=== PATIENT | male | born 1970 | race Caucasian/White ===

== ENCOUNTER 2018-09-03 21:01 | Inpatient (IN) | payer MEDICAID, OTHER ==
[~2018-09-03] VITALS: Ht 193 cm; Wt 95.5 kg
[2018-09-03] MEDS ORDERED: ONDANSETRON 4 MG INJ IV STA (22:30)
[2018-09-03] MEDS ORDERED: SOD CHLORIDE 0.9% 500 ML IV STA (22:30)
[2018-09-03] MEDS ORDERED: morphine 4 MG/ML VIAL IV STA (22:30)
[2018-09-03] MEDS ORDERED: HYDROmorphONE 1 MG/ML SYG IV STA (23:34)
[2018-09-04] VITALS (16 sets, daily range): BP systolic 152–225; BP diastolic 88–133; PULSE 91–133; RESP 18–27; Ht 193 cm; Wt 95.5 kg
[2018-09-04] MEDS ORDERED: ONDANSETRON 4 MG INJ IV STA ×2 (00:17→01:22)
[2018-09-04] MEDS ORDERED: IOHEXOL 300MG/ML 150 ML BTL ONE (00:55)
[2018-09-04] MEDS ORDERED: SOD CHLORIDE 0.9% 100 ML ONE (00:55)
[2018-09-04] MEDS ORDERED: SOD CHLORIDE 0.9% 1,000 ML IV STA (01:22)
[2018-09-04] MEDS ORDERED: HYDROmorphONE 1 MG/ML SYG IV STA (01:22)
[2018-09-04] MEDS ORDERED: NACL 0.9% 3 ML SYG IV SCH (02:00)
[2018-09-04] MEDS ORDERED: BISACODYL (EC) 5 MG TAB PO PRN (02:00)
[2018-09-04] MEDS ORDERED: DOCUSATE SODIUM 100 MG CAP PO PRN (02:00)
[2018-09-04] MEDS: HYDROmorphONE 0.5 MG/0.5 ML SYG IV PRN ×4 (02:10→21:28)
--- NOTE | 2018-09-04 02:51 | ERD ---
ER Documentation Chief Complaint Chief Complaint AP X'S 2 DAYS, C/O CP IN TRIAGE HPI Is a very pleasant 47 female complains of diffuse abdominal pain for the past 3 days. Pain is mild to moderate intensity no exacerbating relieving factors. Associated nausea but no vomiting. Denies fevers or chills. Denies any sick contacts. Denies recent travel. Denies any other current issues. ROS All systems reviewed and are negative except as per history of present illness. Medications Home Meds No Active Prescriptions or Reported Meds Allergies Allergies: Coded Allergies: No Known Allergy (Unverified , 09/03/18) PMhx/Soc History of Surgery: No Anesthesia Reaction: No Hx Neurological Disorder: No Hx Respiratory Disorders: No Hx Cardiac Disorders: No Hx Psychiatric Problems: No Hx Miscellaneous Medical Probl: No Hx Alcohol Use: Yes Hx Substance Use: No Hx Tobacco Use: No Smoking Status: Never smoker Physical Exam Vitals Vital Signs Date Temp Pulse Resp B/P (MAP) Pulse Ox O2 O2 Flow FiO2 Time Delivery Rate 09/04/18 102 20 162/133 95 Room Air 00:00 (143) 09/03/18 96 16 153/109 100 Room Air 23:00 (124) 09/03/18 97.1 85 18 152/94 97 21:04 (113) Physical Exam Const: No acute distress Head: Atraumatic Eyes: Normal Conjunctiva ENT: Normal External Ears, Nose and Mouth. Neck: Full range of motion. No meningismus. Resp: Clear to auscultation bilaterally Cardio: Regular rate and rhythm, no murmurs Abd: Soft, non tender, non distended. Normal bowel sounds Skin: No petechiae or rashes Back: No midline or flank tenderness Ext: No cyanosis, or edema Neur: Awake and alert Psych: Normal Mood and Affect Result Diagram: 09/03/18224209/03/182242 Results 24 hrs Laboratory Tests Test 09/03/18 22:43 White Blood Count 8.4 10^3/ul Red Blood Count 4.46 10^6/ul Hemoglobin 14.5 g/dl Hematocrit 41.5 % Mean Corpuscular Volume 93.0 fl Mean Corpuscular Hemoglobin 32.5 pg Mean Corpuscular Hemoglobin Concent 34.9 g/dl Red Cell Distribution Width 13.8 % Platelet Count 181 10^3/UL Mean Platelet Volume 9.5 fl Immature Granulocytes % 0.400 % Neutrophils % 84.6 % Lymphocytes % 7.3 % Monocytes % 7.2 % Eosinophils % 0.0 % Basophils % 0.5 % Nucleated Red Blood Cells % 0.0 /100WBC Immature Granulocytes # 0.030 10^3/ul Neutrophils # 7.1 10^3/ul Lymphocytes # 0.6 10^3/ul Monocytes # 0.6 10^3/ul Eosinophils # 0.0 10^3/ul Basophils # 0.0 10^3/ul Nucleated Red Blood Cells # 0.0 10^3/ul Sodium Level 140 mmol/L Potassium Level 3.4 mmol/L Chloride Level 101 mmol/L Carbon Dioxide Level 26 mmol/L Anion Gap 13 Blood Urea Nitrogen 9 mg/dl Creatinine 0.94 mg/dl Est Glomerular Filtrat Rate mL/min > 60 mL/min Glucose Level 125 mg/dl Calcium Level 9.0 mg/dl Total Bilirubin 0.7 mg/dl Direct Bilirubin 0.00 mg/dl Indirect Bilirubin 0.7 mg/dl Aspartate Amino Transf (AST/SGOT) 161 IU/L Alanine Aminotransferase (ALT/SGPT) 82 IU/L Alkaline Phosphatase 89 IU/L Troponin I 0.113 ng/ml Total Protein 7.9 g/dl Albumin 4.2 g/dl Globulin 3.70 g/dl Albumin/Globulin Ratio 1.13 Lipase 7557 U/L Ethyl Alcohol Level 196.0 mg/dl Current Medications Medications Dose Sig/Hector Start Time Status Last (Trade) Ordered Route PRN Stop Time Admin Dose Reason Admin Sodium 500 ml @ Q1H STAT 09/03/18 DC 09/03/18 Chloride 500 mls/hr IV 22:30 22:39 09/03/18 23:29 Morphine 4 mg ONCE STAT 09/03/18 DC 09/03/18 Sulfate IV 22:30 22:39 (morphine) 09/03/18 22:31 Ondansetron 4 mg ONCE STAT 09/03/18 DC 09/03/18 HCl (Zofran IV 22:30 22:39 Inj) 09/03/18 22:31 1 mg ONCE STAT 09/03/18 DC 09/03/18 Hydromorphone IV 23:34 23:41 HCl 09/03/18 23:35 (Dilaudid) Ondansetron 4 mg ONCE STAT 09/04/18 DC 09/04/18 HCl (Zofran IV 00:17 00:21 Inj) 09/04/18 00:18 Sodium 100 ml @ ud STK-MED 09/04/18 DC 09/04/18 Chloride ONCE .ROUTE 00:55 01:17 09/04/18 00:56 Iohexol 150 ml STK-MED 09/04/18 DC 09/04/18 (Omnipaque ONCE .ROUTE 00:55 01:17 300mg/ ml) 09/04/18 00:56 Sodium 1,000 ml @ Q1H STAT 09/04/18 DC 09/04/18 Chloride 1,000 mls/hr IV 01:22 01:32 09/04/18 02:21 1 mg ONCE STAT 09/04/18 DC 09/04/18 Hydromorphone IV 01:22 01:30 HCl 09/04/18 01:23 (Dilaudid) Ondansetron 4 mg ONCE STAT 09/04/18 DC 09/04/18 HCl (Zofran IV 01:22 01:20 Inj) 09/04/18 01:23 Procedures/MDM CBC: [no e/o of systemic infection or severe anemia] CMP: [no e/o severe acidosis, alkalosis, renal failure, diabetic ketoa cidosis, liver disease] Lipase: Severe elevation of lipase PT/INR: [normal coagulation] Urine: [no e/o acute infection or hematuria] Medical decision m[age]-year-old male who has evidence of acute pancreatitis. Patient has been hydrated and given pain medications. He is been kept n.p.o. Patient will be admitted to medical surgical floor to Dr. Leslie. Chest X-ray 1V Interpreted by me: Soft Tissue: No acute abnormalities Bones: No acute abnormalities Mediastinum/Cardiac Silhouette/Lungs: [No acute abnormalities] Departure Diagnosis: Primary Impression: Acute pancreatitis Pancreatitis type: unspecified pancreatitis type Acute pancreatitis complication: unspecified Qualified Codes: K85.90 - Acute pancreatitis without necrosis or infection, unspecified Condition: Serious DEANGELO QUEVEDO September 04, 2018 02:51
[2018-09-04] MEDS: SOD CHLORIDE 0.9% 1,000 ML IV SCH ×4 (03:17→21:53)
[2018-09-04] MEDS ORDERED: ONDANSETRON 4 MG INJ IV ONE (03:57)
[2018-09-04] MEDS: ONDANSETRON 4 MG INJ IV PRN ×2 (06:07→13:38)
--- NOTE | 2018-09-04 08:32 | HP ---
Date/Time of Note Date/Time of Note DATE: 09/04/18 TIME: 08:18 Assessment/Plan VTE Prophylaxis Risk score (from Ns)>0 risk: 2 SCD applied (from Ns): Yes Pharmacological prophylaxis: NA/contraindicated Pharm contraindication: low risk/ambulating Lines/Catheters IV [facility]from [facility] Saline Lock Assessment/Plan Hospital Course This is a 47-year-old male being admitted to the [facility] floor for: #1 acute pancreatitis: CT scan consistent with acute pancreatitis. Secondary likely to heavy alcohol use. Will check ethanol level. Will check triglyceride level as well. We will keep patient n.p.o. except meds, aggressive IV fluid hydration. Pain control with Dilaudid. #2 EtOH abuse: We will check blood alcohol level. Banana bag, Librium taper, PRN Ativan, multivitamin, folic acid, thiamine #3 transaminitis: Secondary likely to heavy alcohol use. Check right upper quadrant ultrasound, hepatitis panel. #4 DVT GI prophylaxis: SCDs, no GI prophylaxis indicated Further treatment strategy will be implemented as per the clinical course. Result Diagram: 09/04/18 0709/04/18 07 Results 24hrs Laboratory Tests Test 09/03/18 22:43 09/04/18 07:05 White Blood Count 8.4 9.6 Red Blood Count 4.46 L 4.35 L Hemoglobin 14.5 14.1 Hematocrit 41.5 L 40.7 L Mean Corpuscular Volume 93.0 93.6 Mean Corpuscular Hemoglobin 32.5 32.4 Mean Corpuscular Hemoglobin Concent 34.9 34.6 Red Cell Distribution Width 13.8 14.0 Platelet Count 181 179 Mean Platelet Volume 9.5 9.9 Immature Granulocytes % 0.400 0.300 Neutrophils % 84.6 H 87.3 H Lymphocytes % 7.3 L 4.7 L Monocytes % 7.2 7.4 Eosinophils % 0.0 0.0 Basophils % 0.5 0.3 Nucleated Red Blood Cells % 0.0 0.0 Immature Granulocytes # 0.030 0.030 Neutrophils # 7.1 8.4 H Lymphocytes # 0.6 L 0.5 L Monocytes # 0.6 0.7 Eosinophils # 0.0 0.0 Basophils # 0.0 0.0 Nucleated Red Blood Cells # 0.0 0.0 Sodium Level 140 141 Potassium Level 3.4 L 3.9 Chloride Level 101 106 Carbon Dioxide Level 26 22 Anion Gap 13 13 Blood Urea Nitrogen 9 8 Creatinine 0.94 0.76 Est Glomerular Filtrat Rate mL/min > 60 > 60 Glucose Level 125 132 Calcium Level 9.0 8.5 Total Bilirubin 0.7 0.8 Direct Bilirubin 0.00 0.00 Indirect Bilirubin 0.7 0.8 Aspartate Amino Transf (AST/SGOT) 161 H 117 H Alanine Aminotransferase (ALT/SGPT) 82 H 76 H Alkaline Phosphatase 89 95 Troponin I 0.113 Total Protein 7.9 8.0 Albumin 4.2 4.0 Globulin 3.70 H 4.00 H Albumin/Globulin Ratio 1.13 1.00 Lipase 7557 H Ethyl Alcohol Level 196.0 H Hemoglobin A1c 5.5 Magnesium Level 1.4 L Triglycerides Level 90 Cholesterol Level 296 H LDL Cholesterol, Calculated 210 HDL Cholesterol 68 H Cholesterol/HDL Ratio 4.3 Thyroid Stimulating Hormone (TSH) Pending HPI/ROS Admit Date/Time Admit Date/Time September 04, 2018 at 01:52 Hx of Present Illness Chief complaint: Abdominal pain This is a 47-year-old male with a history of heavy alcohol use who presents to the emergency department complaining of gastric pain. Patient reports that his pain started yesterday associated with nausea and vomiting. He denies having similar symptoms before. Patient reports that he is a heavy alcohol drinker on a daily basis. He denies any chest pain nausea vomiting or diarrhea. Allergies: NKDA Medications: See CHASTITY KEY Const: As per HPI Eyes : No pain discharge or redness or change in visual acuity ENT: No pain, sore throat, congestion, congestion, dysphagia or discharge Respiratory: No shortness of breath, cough, sputum, wheezing, or pleuritic pain Cardiovascular: No chest pain, palpitation, PND, or edema GI : As per HPI Genitourinary: No dysuria, hematuria, flank pain , discharge or CVA tenderness Musculoskeletal: No joint pain, back pain, neck pain, restricted range of motion in neck or joints Skin: No rash, bruising or hives Neuro: No headache, dizziness, syncope, seizure, focal weakness Endocrine: No polyuria, polydipsia, temperature intolerance Psych: No hallucination, depression, anxiety or suicidal ideation PMH/Family/Social Past Medical History Medical History: no pertinent history Medications Current Medications Sodium Chloride 1,000 ml @ 150 mls/hr Q6H40M IV Last administered on 09/04/18at 03:17; Admin Dose 150 MLS/HR; Start 09/04/18 at 01:53 IV Flush (NS 3 ml) 3 ml PER PROTOCOL IV ; Start 09/04/18 at 02:00 Ondansetron HCl (Zofran Inj) 4 mg Q6H PRN IV NAUSEA/VOMITING Last administered on 09/04/18at 06:07; Admin Dose 4 MG; Start 09/04/18 at 02:00 Acetaminophen (Tylenol Tab) 650 mg Q6H PRN PO .PAIN 1-3 OR TEMP; Start 09/04/18 at 02:00 Hydromorphone HCl (Dilaudid) 1 mg Q4H PRN IV .SEVERE PAIN 7-10 Last administered on 09/04/18at 06:08; Admin Dose 1 MG; Start 09/04/18 at 02:00 Docusate Sodium (Colace) 100 mg Q12H PRN PO .CONSTIPATION; Start 09/04/18 at 02:00 Bisacodyl (Dulcolax) 5 mg DAILY PRN PO .CONSTIPATION; Start 09/04/18 at 02:00 Coded Allergies: No Known Allergy (Unverified , 09/03/18) Past Surgical History Left bicep surgery Family History Significant Family History: no pertinent family hx Social History Alcohol Use: heavy Smoking Status: Never smoker Drug Use: none Exam/Review of Systems Vital Signs Vitals Vital Signs Date Temp Pulse Resp B/P (MAP) Pulse Ox O2 O2 Flow FiO2 Time Delivery Rate 09/04/18 98.4 95 18 152/88 95 Nasal 2.0 03:00 (109) Cannula Intake and Output 09/03/18 09/03/18 09/04/18 1515:00 23:00 07:00 IntakeIntake Total 500 ml BalanceBalance 500 ml Exam Exam General: Patient is currently sitting in bed in mild distress from abdominal pain HEENT: Atraumatic, normocephalic. The pupils are equal, round and reactive. Ext raocular motor are intact Neck: Supple with full range of motion. No rigidity or meningismus Chest: Nontender Lungs: Clear to auscultation bilaterally no crackles rales or wheezing Heart: Normal S1-S2, Regular rhythm and rate. No murmur, S3, or S4 Abdomen: Soft, epigastric tenderness to palpation, normal bowel sounds, no costovertebral angle tenderness bilaterally Extremities: Normal to inspection, no edema no cyanosis Neurologic: Normal mental status, speech normal, cranial nerves II through XII are intact, motor and sensory are intact, Psych: Non-tremulous, calm Additional Comments PROCEDURE: CT Abdomen and pelvis with contrast. CLINICAL INDICATION: Abdominal pain. TECHNIQUE: CT scan of the abdomen and pelvis with contrast was performed on a multi-detector high-resolution CT scanner. The patient was scanned following the uncomplicated administration of 100 cc of Omnipaque 300 intravenous contrast. Coronal and sagittal reformatted images were obtained from the axial source images. Images were reviewed on a high-resolution PACS workstation. DICOM images are available. One or more of the following dose reduction techniques were used: - Automated exposure control. - Adjustment of the mA and/or kV according to patient size. - Use of iterative reconstruction technique. Exam CTD/vol = 12.65 mGy. Total exam DLP = 883.68 mGy-cm. COMPARISON: None. FINDINGS: Evaluation of the lung bases demonstrates add bibasilar atelectasis. There is trace right pleural effusion. Abdomen: The liver is normal in size and diffusely low in attenuation consistent with fatty infiltration. There is no focal mass or dilatation of the biliary tree. The gallbladder is not distended. The pancreas is diffusely edematous with moderate surrounding stranding and free fluid extending to bilateral anterior pararenal spaces. The spleen and bilateral adrenal glands are within normal limits. Bilateral kidneys are normal in size with symmetric enhancement. There is no focal mass, hydronephrosis or hydroureter. There is no retroperitoneal adenopathy. The abdominal aorta is of normal caliber. There is diverticulosis of the descending and sigmoid colon without evidence of diverticulitis. There is mild fatty thickening of the right and transverse colon. There is no bowel obstruction or free air. The appendix is not visualized. Pelvis: The bladder is unremarkable. There is mild pelvic free fluid. The prostate and seminal vesicles are within normal limits. There is no significant pelvic adenopathy. Evaluation of the osseous structures demonstrates no suspicious lytic or blastic lesion. There are degenerative subchondral cysts within the left femoral head. IMPRESSION: Pancreatitis with moderate surrounding stranding and free fluid. Fatty infiltration of the liver. Mild bibasilar atelectasis and trace right pleural effusion. Descending and sigmoid diverticulosis without evidence of diverticulitis. Mild fatty thickening of the right and transverse colon suggestive of a chronic colitis. Mild pelvic free fluid. .Nish Cortez MD, MD Date Time Electronically viewed and signed by .Nish Cortez MD, MD on 09/04/2018 02:23 .T/ CC: DEANGELO QUEVEDO [id number] PROCEDURE: XR Chest. TECHNIQUE: Single frontal radiograph. CLINICAL INDICATION: Abdominal Pain COMPARISON: None. FINDINGS: Low lung volumes with elevation of the right hemidiaphragm. Mild right basilar atelectasis. No evidence of focal consolidation, pneumothorax, or pleural effusion. Cardiomediastinal silhouette is within normal limits. Visualized osseous thorax is unremarkable. Overlying soft tissues are equally unremarkable. No evidence of subdiaphragmatic free air. IMPRESSION: No evidence of acute cardiopulmonary process, allowing for low lung volumes. No evidence of free intraperitoneal air. RPTAT: EE Physician Emir Date Time Electronically viewed and signed by Physician Emir on 09/04/2018 00:01 BP/ CC: DEANGELO QUEVEDO [id number] SUZIE MAR September 04, 2018 08:28
[2018-09-04] MEDS ORDERED: MULTIVITAMINS 10 ML, THIAMINE 100 MG, FOLIC ACID 1 MG in SOD CHLORIDE 0.9% 1,000 ML IVPB SCH (09:00)
[2018-09-04] MEDS: CHLORDIAZEPOXIDE 25 MG CAP PO SCH ×3 (10:38→21:28)
--- NOTE | 2018-09-04 12:49 | PN ---
Date/Time of Note Date/Time of Note DATE: 09/04/18 TIME: 12:48 Assessment/Plan VTE Prophylaxis Risk score (from Nsg)>0 risk: 2 SCD applied (from Nsg): Yes Pharmacological prophylaxis: heparin Lines/Catheters IV Catheter Type (from Nrsg): Saline Lock Assessment/Plan Hospital Course 47 yo male with etoh use d/o presents with alcohol induced pancreatitis - Symptomatic care with IV fluids, pain control - Clear liquid diet - Counseled on etoh cessation Result Diagram: 09/04/1870409/04/18704 Results 24hrs Laboratory Tests Test 09/03/18 22:43 09/04/18 07:05 09/04/18 09:55 White Blood Count 8.4 9.6 Red Blood Count 4.46 L 4.35 L Hemoglobin 14.5 14.1 Hematocrit 41.5 L 40.7 L Mean Corpuscular Volume 93.0 93.6 Mean Corpuscular Hemoglobin 32.5 32.4 Mean Corpuscular Hemoglobin Concent 34.9 34.6 Red Cell Distribution Width 13.8 14.0 Platelet Count 181 179 Mean Platelet Volume 9.5 9.9 Immature Granulocytes % 0.400 0.300 Neutrophils % 84.6 H 87.3 H Lymphocytes % 7.3 L 4.7 L Monocytes % 7.2 7.4 Eosinophils % 0.0 0.0 Basophils % 0.5 0.3 Nucleated Red Blood Cells % 0.0 0.0 Immature Granulocytes # 0.030 0.030 Neutrophils # 7.1 8.4 H Lymphocytes # 0.6 L 0.5 L Monocytes # 0.6 0.7 Eosinophils # 0.0 0.0 Basophils # 0.0 0.0 Nucleated Red Blood Cells # 0.0 0.0 Sodium Level 140 141 Potassium Level 3.4 L 3.9 Chloride Level 101 106 Carbon Dioxide Level 26 22 Anion Gap 13 13 Blood Urea Nitrogen 9 8 Creatinine 0.94 0.76 Est Glomerular Filtrat Rate mL/min > 60 > 60 Glucose Level 125 132 Calcium Level 9.0 8.5 Total Bilirubin 0.7 0.8 Direct Bilirubin 0.00 0.00 Indirect Bilirubin 0.7 0.8 Aspartate Amino Transf (AST/SGOT) 161 H 117 H Alanine Aminotransferase (ALT/SGPT) 82 H 76 H Alkaline Phosphatase 89 95 Troponin I 0.113 Total Protein 7.9 8.0 Albumin 4.2 4.0 Globulin 3.70 H 4.00 H Albumin/Globulin Ratio 1.13 1.00 Lipase 7557 H 5234 H Ethyl Alcohol Level 196.0 H Hemoglobin A1c 5.5 Magnesium Level 1.4 L Triglycerides Level 90 Cholesterol Level 296 H LDL Cholesterol, Calculated 210 HDL Cholesterol 68 H Cholesterol/HDL Ratio 4.3 Thyroid Stimulating Hormone (TSH) 0.377 L Hepatitis A Antibody Total POSITIVE H Hepatitis B Surface Antigen NEGATIVE Hepatitis B Surface Antibody NEGATIVE Hepatitis B Core Total Antibody Pending Hepatitis C Antibody NEGATIVE Subjective 24 Hr Interval Summary Free Text/Dictation Pain relieved by dilaudid Occasional nasuea but wants to try clear liquids Admits to heavy drinking. No symptoms of withdrawal currently Exam/Review of Systems Exam Vitals Vital Signs Date Temp Pulse Resp B/P (MAP) Pulse Ox O2 O2 Flow FiO2 Time Delivery Rate 09/04/18 98.8 91 20 180/116 96 08:00 (137) 09/04/18 Nasal 2.0 03:00 Cannula Intake and Output 09/03/18 09/03/18 09/04/18 1515:00 23:00 07:00 IntakeIntake Total 500 ml BalanceBalance 500 ml Results Results 24hrs Laboratory Tests Test 09/03/18 22:43 09/04/18 07:05 09/04/18 09:55 White Blood Count 8.4 9.6 Red Blood Count 4.46 L 4.35 L Hemoglobin 14.5 14.1 Hematocrit 41.5 L 40.7 L Mean Corpuscular Volume 93.0 93.6 Mean Corpuscular Hemoglobin 32.5 32.4 Mean Corpuscular Hemoglobin Concent 34.9 34.6 Red Cell Distribution Width 13.8 14.0 Platelet Count 181 179 Mean Platelet Volume 9.5 9.9 Immature Granulocytes % 0.400 0.300 Neutrophils % 84.6 H 87.3 H Lymphocytes % 7.3 L 4.7 L Monocytes % 7.2 7.4 Eosinophils % 0.0 0.0 Basophils % 0.5 0.3 Nucleated Red Blood Cells % 0.0 0.0 Immature Granulocytes # 0.030 0.030 Neutrophils # 7.1 8.4 H Lymphocytes # 0.6 L 0.5 L Monocytes # 0.6 0.7 Eosinophils # 0.0 0.0 Basophils # 0.0 0.0 Nucleated Red Blood Cells # 0.0 0.0 Sodium Level 140 141 Potassium Level 3.4 L 3.9 Chloride Level 101 106 Carbon Dioxide Level 26 22 Anion Gap 13 13 Blood Urea Nitrogen 9 8 Creatinine 0.94 0.76 Est Glomerular Filtrat Rate mL/min > 60 > 60 Glucose Level 125 132 Calcium Level 9.0 8.5 Total Bilirubin 0.7 0.8 Direct Bilirubin 0.00 0.00 Indirect Bilirubin 0.7 0.8 Aspartate Amino Transf (AST/SGOT) 161 H 117 H Alanine Aminotransferase (ALT/SGPT) 82 H 76 H Alkaline Phosphatase 89 95 Troponin I 0.113 Total Protein 7.9 8.0 Albumin 4.2 4.0 Globulin 3.70 H 4.00 H Albumin/Globulin Ratio 1.13 1.00 Lipase 7557 H 5234 H Ethyl Alcohol Level 196.0 H Hemoglobin A1c 5.5 Magnesium Level 1.4 L Triglycerides Level 90 Cholesterol Level 296 H LDL Cholesterol, Calculated 210 HDL Cholesterol 68 H Cholesterol/HDL Ratio 4.3 Thyroid Stimulating Hormone (TSH) 0.377 L Hepatitis A Antibody Total POSITIVE H Hepatitis B Surface Antigen NEGATIVE Hepatitis B Surface Antibody NEGATIVE Hepatitis B Core Total Antibody Pending Hepatitis C Antibody NEGATIVE Medications Medication Current Medications Sodium Chloride 1,000 ml @ 150 mls/hr Q6H40M IV Last administered on 09/04/18at 03:17; Admin Dose 150 MLS/HR; Start 09/04/18 at 01:53 IV Flush (NS 3 ml) 3 ml PER PROTOCOL IV ; Start 09/04/18 at 02:00 Ondansetron HCl (Zofran Inj) 4 mg Q6H PRN IV NAUSEA/VOMITING Last administered on 09/04/18at 06:07; Admin Dose 4 MG; Start 09/04/18 at 02:00 Acetaminophen (Tylenol Tab) 650 mg Q6H PRN PO .PAIN 1-3 OR TEMP; Start 09/04/18 at 02:00 Hydromorphone HCl (Dilaudid) 1 mg Q4H PRN IV .SEVERE PAIN 7-10 Last administered on 09/04/18at 10:40; Admin Dose 1 MG; Start 09/04/18 at 02:00 Docusate Sodium (Colace) 100 mg Q12H PRN PO .CONSTIPATION; Start 09/04/18 at 02:00 Bisacodyl (Dulcolax) 5 mg DAILY PRN PO .CONSTIPATION; Start 09/04/18 at 02:00 Multivitamins 10 ml/Thiamine HCl 100 mg/Folic Acid 1 mg/Sodium Chloride 1,011.2 ml @ 125 mls/ hr DAILY@09 IVPB Last administered on 09/04/18at 10:37; Admin Dose 125 MLS/HR; Start 09/04/18 at 09:00; Stop 09/04/18 at 17:06 Lorazepam (Ativan) 1 mg Q2H PRN IV CONTROL WITHDRAWAL SYMPTOMS; Start 09/04/18 at 08:30 Chlordiazepoxide (Librium) 50 mg TID PO Last administered on 09/04/18at 10:38; Admin Dose 50 MG; Start 09/04/18 at 09:00; Stop 09/05/18 at 08:59 Chlordiazepoxide (Librium) 25 mg QID PO ; Start 09/05/18 at 09:00; Stop 09/06/18 at 08:59 Chlordiazepoxide (Librium) 25 mg TID PO ; Start 09/06/18 at 09:00; Stop 09/07/18 at 08:59 GINA OROZCO MD September 04, 2018 12:49
--- NOTE | 2018-09-04 14:01 | EN ---
Date/Time of Note Date/Time of Note DATE: 09/04/18 TIME: 13:59 Event Note Medicine Medicine Event Note [employer] for seizure Patient had witness seizure, total body shaking which resolved spontatneously. When I arrived patient not convulsing at all. Hyperventilating. 100% O2 sat. BP quite elevated. Somewhat responsive to name but not to commands. I assume this is an alcohol withdrawal seizure given the clinical history. We will move him to ICU. Check labs. Continue librium for withdrawal. GINA OROZCO MD September 04, 2018 14:01
[2018-09-04] MEDS: AMLODIPINE 5 MG TAB PO SCH (16:01)
[2018-09-04] MEDS ORDERED: hydrALAzine 20 MG INJ IV PRN (17:30)
[2018-09-04] MEDS: LORAZEPAM 2 MG INJ IV PRN (22:31)
[2018-09-05] VITALS (20 sets, daily range): BP systolic 157–186; BP diastolic 76–125; PULSE 114–158; RESP 17–28
[2018-09-05] MEDS ORDERED: hydrALAzine 20 MG INJ ONE (00:10)
[2018-09-05] MEDS: hydrALAzine 20 MG INJ IV PRN ×2 (00:11→21:47)
[2018-09-05] MEDS: SOD CHLORIDE 0.9% 1,000 ML IV SCH ×4 (03:00→22:39)
[2018-09-05] MEDS ORDERED: LABETALOL HCL 20MG INJ IV ONE (04:00)
[2018-09-05] MEDS: LORAZEPAM 2 MG INJ IV PRN ×3 (04:47→23:59)
[2018-09-05] MEDS ORDERED: POTASSIUM CHLORIDE (SR) 20 MEQ TAB PO STA (08:01)
[2018-09-05] MEDS: AMLODIPINE 5 MG TAB PO SCH ×2 (08:18→20:23)
[2018-09-05] MEDS ORDERED: CHLORDIAZEPOXIDE 25 MG CAP PO SCH (09:00)
--- NOTE | 2018-09-05 12:45 | PN ---
Date/Time of Note Date/Time of Note DATE: 09/05/18 TIME: 12:44 Assessment/Plan VTE Prophylaxis Risk score (from Nsg)>0 risk: 2 SCD applied (from Nsg): Yes Pharmacological prophylaxis: heparin Lines/Catheters IV Catheter Type (from Nrsg): Peripheral IV Urinary Cath still in place: No Assessment/Plan Hospital Course EXAM: Comfortable appearing A bit somnulent/sedated Breathign comfortably RRR CTAB Soft nt nd No edema 47 yo male with etoh use d/o presents with alcohol induced pancreatitis, then suffered alcohol withdrawal seizure Alcohol withdrawal with seizure: - Librium taper, a bit oversedated now Pancreatitis - Symptomatic care with IV fluids, pain control - Advance diet Alcohol use d/o: - Counseled on etoh cessation Result Diagram: 09/05/18 0510 09/05/18 0510 Results 24hrs Laboratory Tests Test 09/04/18 13:30 09/04/18 13:55 09/04/18 16:25 09/05/18 05:09 Urine Color [place] Urine Clarity SLIGHTLY CLOUDY A Urine pH 5.0 Urine Specific 1.038 H [place] Urine Ketones 1+ H Urine Nitrite NEGATIVE Urine Bilirubin NEGATIVE Urine 2+ H Urobilinogen Urine Leukocyte NEGATIVE Esterase Urine Microscopic 4 RBC Urine Microscopic 4 WBC Urine Bacteria FEW A Urine Mucus FEW A Urine Hemoglobin 2+ H Urine Glucose 1+ H Urine Total 3+ H Protein Urine Opiates Positive Screen Urine Negative Barbiturates Urine Negative Amphetamines Screen Urine Negative Benzodiazepines Screen Urine Cocaine Negative Screen Urine Negative Cannabinoids Bedside Glucose 142 Sodium Level 140 Potassium Level 3.6 Chloride Level 102 Carbon Dioxide 27 Level Anion Gap 11 Blood Urea 11 Nitrogen Creatinine 0.96 Est Glomerular > 60 Filtrat Rate mL/min Glucose Level 147 Calcium Level 8.9 Lipase 3111 H Test 09/05/18 05:10 White Blood Count 9.9 Red Blood Count 4.14 L Hemoglobin 13.5 L Hematocrit 39.4 L Mean Corpuscular 95.2 Volume Mean Corpuscular 32.6 Hemoglobin Mean Corpuscular 34.3 Hemoglobin Concen t Red Cell 14.5 Distribution Width Platelet Count 154 Mean Platelet 10.2 Volume Immature 0.500 H Granulocytes % Neutrophils % 81.0 H Lymphocytes % 7.0 L Monocytes % 10.6 Eosinophils % 0.6 Basophils % 0.3 Nucleated Red 0.0 Blood Cells % Immature 0.050 H Granulocytes # Neutrophils # 8.0 H Lymphocytes # 0.7 L Monocytes # 1.1 H Eosinophils # 0.1 Basophils # 0.0 Nucleated Red 0.0 Blood Cells # Sodium Level 138 Potassium Level 3.1 L Chloride Level 99 Carbon Dioxide 29 Level Anion Gap 10 Blood Urea 11 Nitrogen Creatinine 0.94 Est Glomerular > 60 Filtrat Rate mL/min Glucose Level 92 # Calcium Level 8.9 Total Bilirubin 0.9 Direct Bilirubin 0.00 Indirect 0.9 Bilirubin Aspartate Amino 86 H Transf (AST/SGOT) Alanine 57 Aminotransferase (ALT/SGPT) Alkaline 79 Phosphatase Total Protein 7.3 Albumin 3.8 Globulin 3.50 H Albumin/Globulin 1.08 Ratio Subjective 24 Hr Interval Summary Free Text/Dictation No more seizures A bit oversedated today No withdrawal symptoms Wants to eat regular food No abdominal pain Exam/Review of Systems Exam Vitals Vital Signs Date Temp Pulse Resp B/P (MAP) Pulse Ox O2 O2 Flow FiO2 Time Delivery Rate 09/05/18 98.6 129 22 158/76 92 Room Air 11:20 (103) 09/04/18 2.0 21:30 Intake and Output 09/04/18 09/04/18 09/05/18 1515:00 23:00 07:00 IntakeIntake Total 1115 ml 426.2 ml 1800 ml OutputOutput Total 1500 ml 125 ml 500 ml BalanceBalance -385 ml 301.2 ml 1300 ml Results Results 24hrs Laboratory Tests Test 09/04/18 13:30 09/04/18 13:55 09/04/18 16:25 09/05/18 05:09 Urine Color [place] Urine Clarity SLIGHTLY CLOUDY A Urine pH 5.0 Urine Specific 1.038 H [place] Urine Ketones 1+ H Urine Nitrite NEGATIVE Urine Bilirubin NEGATIVE Urine 2+ H Urobilinogen Urine Leukocyte NEGATIVE Esterase Urine Microscopic 4 RBC Urine Microscopic 4 WBC Urine Bacteria FEW A Urine Mucus FEW A Urine Hemoglobin 2+ H Urine Glucose 1+ H Urine Total 3+ H Protein Urine Opiates Positive Screen Urine Negative Barbiturates Urine Negative Amphetamines Screen Urine Negative Benzodiazepines Screen Urine Cocaine Negative Screen Urine Negative Cannabinoids Bedside Glucose 142 Sodium Level 140 Potassium Level 3.6 Chloride Level 102 Carbon Dioxide 27 Level Anion Gap 11 Blood Urea 11 Nitrogen Creatinine 0.96 Est Glomerular > 60 Filtrat Rate mL/min Glucose Level 147 Calcium Level 8.9 Lipase 3111 H Test 09/05/18 05:10 White Blood Count 9.9 Red Blood Count 4.14 L Hemoglobin 13.5 L Hematocrit 39.4 L Mean Corpuscular 95.2 Volume Mean Corpuscular 32.6 Hemoglobin Mean Corpuscular 34.3 Hemoglobin Concen t Red Cell 14.5 Distribution Width Platelet Count 154 Mean Platelet 10.2 Volume Immature 0.500 H Granulocytes % Neutrophils % 81.0 H Lymphocytes % 7.0 L Monocytes % 10.6 Eosinophils % 0.6 Basophils % 0.3 Nucleated Red 0.0 Blood Cells % Immature 0.050 H Granulocytes # Neutrophils # 8.0 H Lymphocytes # 0.7 L Monocytes # 1.1 H Eosinophils # 0.1 Basophils # 0.0 Nucleated Red 0.0 Blood Cells # Sodium Level 138 Potassium Level 3.1 L Chloride Level 99 Carbon Dioxide 29 Level Anion Gap 10 Blood Urea 11 Nitrogen Creatinine 0.94 Est Glomerular > 60 Filtrat Rate mL/min Glucose Level 92 # Calcium Level 8.9 Total Bilirubin 0.9 Direct Bilirubin 0.00 Indirect 0.9 Bilirubin Aspartate Amino 86 H Transf (AST/SGOT) Alanine 57 Aminotransferase (ALT/SGPT) Alkaline 79 Phosphatase Total Protein 7.3 Albumin 3.8 Globulin 3.50 H Albumin/Globulin 1.08 Ratio Medications Medication Current Medications Sodium Chloride 1,000 ml @ 150 mls/hr Q6H40M IV Last administered on 09/05/18at 10:00; Admin Dose 150 MLS/HR; Start 09/04/18 at 01:53 IV Flush (NS 3 ml) 3 ml PER PROTOCOL IV ; Start 09/04/18 at 02:00 Ondansetron HCl (Zofran Inj) 4 mg Q6H PRN IV NAUSEA/VOMITING Last administered on 09/04/18at 13:38; Admin Dose 4 MG; Start 09/04/18 at 02:00 Acetaminophen (Tylenol Tab) 650 mg Q6H PRN PO .PAIN 1-3 OR TEMP; Start 09/04/18 at 02:00 Hydromorphone HCl (Dilaudid) 1 mg Q4H PRN IV .SEVERE PAIN 7-10 Last adminis tered on 09/04/18at 21:28; Admin Dose 1 MG; Start 09/04/18 at 02:00 Docusate Sodium (Colace) 100 mg Q12H PRN PO .CONSTIPATION; Start 09/04/18 at 02:00 Bisacodyl (Dulcolax) 5 mg DAILY PRN PO .CONSTIPATION; Start 09/04/18 at 02:00 Lorazepam (Ativan) 1 mg Q2H PRN IV withdrawl symptoms/seizures Last a dministered on 09/05/18at 04:47; Admin Dose 1 MG; Start 09/04/18 at 08:30 Hydralazine HCl (Apresoline) 10 mg Q4H PRN IV ELEVATED BLOOD PRESSURE Last administered on 09/05/18at 00:11; Admin Dose 10 MG; Start 09/05/18 at 00:00 Chlordiazepoxide (Librium) 25 mg Q12 PO ; Start 09/05/18 at 21:00 Amlodipine Besylate (Norvasc) 5 mg BID PO ; Start 09/05/18 at 21:00 GINA OROZCO MD September 05, 2018 12:45
--- NOTE | 2018-09-05 14:32 | RADRPT ---
Vent Rate: 91 bpm RR Interval: 0 msec [place] Interval: 140 msec QRS Duration: 80 msec QT Interval: 454 msec QTC Interval: 558 msec P-R-T [place]: 56 - 5 - 39 degrees Normal sinus rhythm Septal infarct , age undetermined Prolonged QT Abnormal ECG Electronically Signed By: [facility]
--- NOTE | 2018-09-05 14:32 | RADRPT ---
Vent Rate: 93 bpm RR Interval: 0 msec [place] Interval: 138 msec QRS Duration: 80 msec QT Interval: 448 msec QTC Interval: 557 msec P-R-T [place]: 58 - 4 - 43 degrees Sinus rhythm with occasional premature ventricular complexes and fusion complexes Septal infarct , age undetermined Prolonged QT Abnormal ECG Electronically Signed By: [facility]
[2018-09-05] MEDS: CHLORDIAZEPOXIDE 25 MG CAP PO SCH (20:23)
[2018-09-05] MEDS: ACETAMINOPHEN 325 MG TAB PO PRN (20:26)
[2018-09-06] VITALS (13 sets, daily range): BP systolic 158–176; BP diastolic 107–121; PULSE 110–165; RESP 20–21
[2018-09-06] MEDS ORDERED: LABETALOL HCL 20MG INJ IV ONE (01:00)
[2018-09-06] MEDS: ENALAPRIL 2.5 MG TAB PO PRN (01:01)
[2018-09-06] MEDS ORDERED: METOPROLOL 5 MG INJ IV ONE (05:00)
[2018-09-06] MEDS: SOD CHLORIDE 0.9% 1,000 ML IV SCH ×2 (05:12→11:32)
[2018-09-06] MEDS: ACETAMINOPHEN 325 MG TAB PO PRN ×2 (05:13→17:24)
[2018-09-06] MEDS: CHLORDIAZEPOXIDE 25 MG CAP PO SCH (08:18)
[2018-09-06] MEDS: AMLODIPINE 5 MG TAB PO SCH ×2 (08:18→21:33)
[2018-09-06] MEDS ORDERED: CHLORDIAZEPOXIDE 25 MG CAP PO SCH (09:00)
[2018-09-06] MEDS ORDERED: POTASSIUM CHLORIDE (SR) 20 MEQ TAB PO STA (10:10)
--- NOTE | 2018-09-06 13:40 | PN ---
Date/Time of Note Date/Time of Note DATE: 09/06/18 TIME: 13:39 Assessment/Plan VTE Prophylaxis Risk score (from Nsg)>0 risk: 2 SCD applied (from Nsg): Yes Pharmacological prophylaxis: heparin Lines/Catheters IV Catheter Type (from Nrsg): Peripheral IV Urinary Cath still in place: No Assessment/Plan Hospital Course EXAM: Comfortable appearing A bit somnulent/sedated Breathign comfortably RRR CTAB Soft nt nd No edema 47 yo male with etoh use d/o presents with alcohol induced pancreatitis, then suffered alcohol withdrawal seizure Alcohol withdrawal with seizure: - Librium taper, remains a bit oversedated now Pancreatitis - Symptomatic care with IV fluids, pain control - Advance diet Alcohol use d/o: - Counseled on etoh cessation Result Diagram: 09/06/1852009/06/18520 Results 24hrs Laboratory Tests Test 09/06/18 05:21 White Blood Count 8.4 Red Blood Count 3.95 L Hemoglobin 12.9 L Hematocrit 37.8 L Mean Corpuscular Volume 95.7 Mean Corpuscular Hemoglobin 32.7 Mean Corpuscular Hemoglobin Concent 34.1 Red Cell Distribution Width 14.2 Platelet Count 162 Mean Platelet Volume 10.4 Immature Granulocytes % 0.400 Neutrophils % 73.5 Lymphocytes % 12.1 L Monocytes % 11.3 H Eosinophils % 2.3 Basophils % 0.4 Nucleated Red Blood Cells % 0.0 Immature Granulocytes # 0.030 Neutrophils # 6.2 Lymphocytes # 1.0 Monocytes # 1.0 H Eosinophils # 0.2 Basophils # 0.0 Nucleated Red Blood Cells # 0.0 Sodium Level 137 Potassium Level 3.0 L Chloride Level 102 Carbon Dioxide Level 29 Anion Gap 6 Blood Urea Nitrogen 7 Creatinine 0.81 Est Glomerular Filtrat Rate mL/min > 60 Glucose Level 108 Calcium Level 8.5 Total Bilirubin 0.8 Direct Bilirubin 0.00 Indirect Bilirubin 0.8 Aspartate Amino Transf (AST/SGOT) 74 H Alanine Aminotransferase (ALT/SGPT) 52 Alkaline Phosphatase 75 Total Protein 6.7 Albumin 3.4 Globulin 3.30 H Albumin/Globulin Ratio 1.03 Lipase 2372 H Subjective 24 Hr Interval Summary Free Text/Dictation Resting comfortably Remains quite sedated Subjective hx not possible: pt non-verbal Exam/Review of Systems Exam Vitals Vital Signs Date Temp Pulse Resp B/P (MAP) Pulse Ox O2 O2 Flow FiO2 Time Delivery Rate 09/06/18 98.3 110 20 176/115 93 11:13 (135) 09/06/18 Nasal 2.0 07:42 Cannula Intake and Output 09/05/18 09/05/18 09/06/18 1515:00 23:00 07:00 IntakeIntake Total 500 ml 1960 ml 1700 ml BalanceBalance 500 ml 1960 ml 1700 ml Results Results 24hrs Laboratory Tests Test 09/06/18 05:21 White Blood Count 8.4 Red Blood Count 3.95 L Hemoglobin 12.9 L Hematocrit 37.8 L Mean Corpuscular Volume 95.7 Mean Corpuscular Hemoglobin 32.7 Mean Corpuscular Hemoglobin Concent 34.1 Red Cell Distribution Width 14.2 Platelet Count 162 Mean Platelet Volume 10.4 Immature Granulocytes % 0.400 Neutrophils % 73.5 Lymphocytes % 12.1 L Monocytes % 11.3 H Eosinophils % 2.3 Basophils % 0.4 Nucleated Red Blood Cells % 0.0 Immature Granulocytes # 0.030 Neutrophils # 6.2 Lymphocytes # 1.0 Monocytes # 1.0 H Eosinophils # 0.2 Basophils # 0.0 Nucleated Red Blood Cells # 0.0 Sodium Level 137 Potassium Level 3.0 L Chloride Level 102 Carbon Dioxide Level 29 Anion Gap 6 Blood Urea Nitrogen 7 Creatinine 0.81 Est Glomerular Filtrat Rate mL/min > 60 Glucose Level 108 Calcium Level 8.5 Total Bilirubin 0.8 Direct Bilirubin 0.00 Indirect Bilirubin 0.8 Aspartate Amino Transf (AST/SGOT) 74 H Alanine Aminotransferase (ALT/SGPT) 52 Alkaline Phosphatase 75 Total Protein 6.7 Albumin 3.4 Globulin 3.30 H Albumin/Globulin Ratio 1.03 Lipase 2372 H Medications Medication Current Medications Sodium Chloride 1,000 ml @ 150 mls/hr Q6H40M IV Last administered on 09/06/18at 11:32; Admin Dose 150 MLS/HR; Start 09/04/18 at 01:53 IV Flush (NS 3 ml) 3 ml PER PROTOCOL IV ; Start 09/04/18 at 02:00 Ondansetron HCl (Zofran Inj) 4 mg Q6H PRN IV NAUSEA/VOMITING Last administered on 09/04/18at 13:38; Admin Dose 4 MG; Start 09/04/18 at 02:00 Acetaminophen (Tylenol Tab) 650 mg Q6H PRN PO .PAIN 1-3 OR TEMP Last admin istered on 09/06/18 05:13; Admin Dose 650 MG; Start 09/04/18 at 02:00 Docusate Sodium (Colace) 100 mg Q12H PRN PO .CONSTIPATION; Start 09/04/18 at 02:00 Bisacodyl (Dulcolax) 5 mg DAILY PRN PO .CONSTIPATION; Start 09/04/18 at 02:00 Lorazepam (Ativan) 1 mg Q2H PRN IV withdrawl symptoms/seizures Last administered on 09/05/18at 23:59; Admin Dose 1 MG; Start 09/04/18 at 08:30 Hydralazine HCl (Apresoline) 10 mg Q4H PRN IV ELEVATED BLOOD PRESSURE Last administered on 09/05/18at 21:47; Admin Dose 10 MG; Start 09/05/18 at 00:00 Amlodipine Besylate (Norvasc) 5 mg BID PO Last administered on 09/06/18 08:18; Admin Dose 5 MG; Start 09/05/18 at 21:00 Enalapril Maleate (Vasotec) 1.25 mg Q6H PRN PO elevated BP Last administered on 09/06/18at 01:01; Admin Dose 1.25 MG; Start 09/06/18 at 00:00 GINA OROZCO MD September 06, 2018 13:39
[2018-09-07] VITALS (11 sets, daily range): BP systolic 162–180; BP diastolic 110–124; PULSE 97–128; RESP 17–20
[2018-09-07] MEDS: hydrALAzine 20 MG INJ IV PRN (00:13)
[2018-09-07] MEDS: ENALAPRIL 2.5 MG TAB PO PRN (08:14)
[2018-09-07] MEDS: AMLODIPINE 5 MG TAB PO SCH ×2 (08:16→20:58)
--- NOTE | 2018-09-07 12:38 | PN ---
Date/Time of Note Date/Time of Note DATE: 09/07/18 TIME: 12:35 Assessment/Plan VTE Prophylaxis Risk score (from Nsg)>0 risk: 1 SCD applied (from Ns): Yes Pharmacological prophylaxis: heparin Lines/Catheters IV Catheter Type (from Nrs): [place] Urinary Cath still in place: No Assessment/Plan Hospital Course EXAM: Comfortable appearing A bit somnulent/sedated Breathign comfortably RRR CTAB Soft nt nd No edema 47 yo male with etoh use d/o presents with alcohol induced pancreatitis, then suffered alcohol withdrawal seizure Alcohol withdrawal with seizure: - Now stable, no signs of withdrawal. He is in fact somewhat oversedated still so will hold all benzos and allow him to equilibrate Hypertension: - I have added Coreg today to amlodipine Pancreatitis - Resolving nicely. Will hold further IV fluids Alcohol use d/o: - Counseled on etoh cessation Discharge planning: He can be discharged home in coming days when alert and able to ambulate. Will likely need antihypertensives prescribed at discharge Result Diagram: 09/07/18 0458 09/07/18 0458 Results 24hrs Laboratory Tests Test 09/07/18 04:58 White Blood Count 7.9 Red Blood Count 4.19 L Hemoglobin 13.9 L Hematocrit 39.4 L Mean Corpuscular Volume 94.0 Mean Corpuscular Hemoglobin 33.2 H Mean Corpuscular Hemoglobin Concent 35.3 Red Cell Distribution Width 13.6 Platelet Count 199 # Mean Platelet Volume 9.8 Immature Granulocytes % 0.600 H Neutrophils % 76.0 Lymphocytes % 10.4 L Monocytes % 11.1 H Eosinophils % 1.5 Basophils % 0.4 Nucleated Red Blood Cells % 0.0 Immature Granulocytes # 0.050 H Neutrophils # 6.0 Lymphocytes # 0.8 Monocytes # 0.9 Eosinophils # 0.1 Basophils # 0.0 Nucleated Red Blood Cells # 0.0 Sodium Level 138 Potassium Level 3.2 L Chloride Level 99 Carbon Dioxide Level 28 Anion Gap 11 Blood Urea Nitrogen 5 L Creatinine 0.67 Est Glomerular Filtrat Rate mL/min > 60 Glucose Level 115 Calcium Level 9.0 Total Bilirubin 0.8 Direct Bilirubin 0.00 Indirect Bilirubin 0.8 Aspartate Amino Transf (AST/SGOT) 67 H Alanine Aminotransferase (ALT/SGPT) 49 Alkaline Phosphatase 95 Total Protein 7.7 # Albumin 3.8 Globulin 3.90 H Albumin/Globulin Ratio 0.97 Lipase 1710 H Subjective 24 Hr Interval Summary Free Text/Dictation Remains tachy, quite hypertensive Somnolence is improving Taking some PO Very unsteady on his feet Exam/Review of Systems Exam Vitals Vital Signs Date Temp Pulse Resp B/P (MAP) Pulse Ox O2 O2 Flow FiO2 Time Delivery Rate 09/07/18 98.3 122 20 179/119 96 09:04 (139) 09/06/18 Nasal 2.0 20:00 Cannula Intake and Output 09/06/18 09/06/18 09/07/18 1515:00 23:00 07:00 IntakeIntake Total 1200 ml 500 ml OutputOutput Total 600 ml 1200 ml BalanceBalance 600 ml -700 ml Results Results 24hrs Laboratory Tests Test 09/07/18 04:58 White Blood Count 7.9 Red Blood Count 4.19 L Hemoglobin 13.9 L Hematocrit 39.4 L Mean Corpuscular Volume 94.0 Mean Corpuscular Hemoglobin 33.2 H Mean Corpuscular Hemoglobin Concent 35.3 Red Cell Distribution Width 13.6 Platelet Count 199 # Mean Platelet Volume 9.8 Immature Granulocytes % 0.600 H Neutrophils % 76.0 Lymphocytes % 10.4 L Monocytes % 11.1 H Eosinophils % 1.5 Basophils % 0.4 Nucleated Red Blood Cells % 0.0 Immature Granulocytes # 0.050 H Neutrophils # 6.0 Lymphocytes # 0.8 Monocytes # 0.9 Eosinophils # 0.1 Basophils # 0.0 Nucleated Red Blood Cells # 0.0 Sodium Level 138 Potassium Level 3.2 L Chloride Level 99 Carbon Dioxide Level 28 Anion Gap 11 Blood Urea Nitrogen 5 L Creatinine 0.67 Est Glomerular Filtrat Rate mL/min > 60 Glucose Level 115 Calcium Level 9.0 Total Bilirubin 0.8 Direct Bilirubin 0.00 Indirect Bilirubin 0.8 Aspartate Amino Transf (AST/SGOT) 67 H Alanine Aminotransferase (ALT/SGPT) 49 Alkaline Phosphatase 95 Total Protein 7.7 # Albumin 3.8 Globulin 3.90 H Albumin/Globulin Ratio 0.97 Lipase 1710 H Medications Medication Current Medications IV Flush (NS 3 ml) 3 ml PER PROTOCOL IV ; Start 09/04/18 at 02:00 Ondansetron HCl (Zofran Inj) 4 mg Q6H PRN IV NAUSEA/VOMITING Last administered on 09/04/18at 13:38; Admin Dose 4 MG; Start 09/04/18 at 02:00 Acetaminophen (Tylenol Tab) 650 mg Q6H PRN PO .PAIN 1-3 OR TEMP Last administered on 09/06/18 17:24; Admin Dose 650 MG; Start 09/04/18 at 02:00 Docusate Sodium (Colace) 100 mg Q12H PRN PO .CONSTIPATION; Start 09/04/18 at 02:00 Bisacodyl (Dulcolax) 5 mg DAILY PRN PO .CONSTIPATION; Start 09/04/18 at 02:00 Hydralazine HCl (Apresoline) 10 mg Q4H PRN IV ELEVATED BLOOD PRESSURE Last administered on 09/07/18 00:13; Admin Dose 10 MG; Start 09/05/18 at 00:00 Amlodipine Besylate (Norvasc) 5 mg BID PO Last administered on 09/07/18 08:16; Admin Dose 5 MG; Start 09/05/18 at 21:00 Enalapril Maleate (Vasotec) 1.25 mg Q6H PRN PO elevated BP Last administered on 09/07/18 08:14; Admin Dose 1.25 MG; Start 09/06/18 at 00:00 Carvedilol (Coreg) 6.25 mg BID PO Last administered on 09/07/18 12:09; Admin Dose 6.25 MG; Start 09/07/18 at 11:30 GINA OROZCO MD September 07, 2018 12:37
[2018-09-08] VITALS (7 sets, daily range): BP systolic 135–150; BP diastolic 96–109; PULSE 101–117; RESP 16–20
[2018-09-08] MEDS: AMLODIPINE 5 MG TAB PO SCH (09:52)
--- NOTE | 2018-09-08 13:50 | PDOCDIS ---
Discharge Instructions CONDITION [id number] Patient Condition: [id number] Stable HOME CARE INSTRUCTIONS: [id number] Diet Instructions: [id number] Low Fat /Cholesterol ACTIVITY: [id number] Activity Restrictions: [id number] Slowly Increase Activity Rest between Activity Avoid heavy lifting FOLLOW UP/APPOINTMENTS Follow-up Plan Please take your medications as prescribed. If you notice any increasing or worsening nausea, vomiting, or abdominal pain, please call your primary doctor, go to ER, or call 911. FELICITY CALIX September 08, 2018 13:50
[2018-09-08] MEDS ORDERED: AMLO-145 PO (13:51)
[2018-09-08] MEDS ORDERED: CARV6.2579 PO (13:51)
--- NOTE | 2018-09-08 13:54 | DS ---
Date/Time of Note Date/Time of Note DATE: 09/08/18 TIME: 13:52 Discharge Summary Admission/Discharge Info Admit Date/Time September 04, 2018 at 01:52 Discharge Date/Time Patient Condition: Stable Hx of Present Illness 47-year-old male with a history of heavy alcohol use who presents to the emergency department complaining of gastric pain. Patient reports that his pain started yesterday associated with nausea and vomiting. He denies having similar symptoms before. Patient reports that he is a heavy alcohol drinker on a daily basis. He denies any chest pain nausea vomiting or diarrhea. Hospital Course Patient was admitted and found with pancreatitis, likely secondary to alcohol use. His lipase on admission was 7500. Over the course of his hospital stay he was initially made n.p.o. given pain control medications antiemetic medications. His lipase levels were checked daily and they were trending down by the day of discharge. He was started on diet about 2 days prior to discharge and he tolerated that well. He was found with elevated blood alcohol levels and counseled on alcohol cessation as well. He was also found with high blood pressure and started on new blood pressure medicines which helped control his blood pressure as well. He was able to ambulate, tolerated p.o. diet, vital signs are stable on day of discharge. He will be discharged home today improved condition. See below for full list of discharge medications. Home Meds Active Scripts Amlodipine Besylate* (Amlodipine Besylate*) 5 Mg Tablet, 5 MG PO BID, #60 TAB 2 Refills Prov:YOGI,FELICITY S. 09/08/18 Carvedilol* (Carvedilol*) 6.25 Mg Tablet, 6.25 MG PO BID, #60 TAB 2 Refills Prov:YARA CALIXP S. 09/08/18 Follow-up Plan Please take your medications as prescribed. If you notice any increasing or worsening nausea, vomiting, or abdominal pain, please call your primary doctor, go to ER, or call 911. Primary Care Provider Care Physician No Primary Time spent on discharge: > 30 minutes Pending Labs Laboratory Tests Test 09/08/18 04:36 Sodium Level 137 mmol/L (135-144) Potassium Level 3.1 mmol/L (3.5-5.1) Chloride Level 97 mmol/L (97-110) Carbon Dioxide Level 31 mmol/L (21-31) Anion Gap 9 (5-13) Blood Urea Nitrogen 6 mg/dl (7-20) Creatinine 0.84 mg/dl (0.61-1.24) Est Glomerular Filtrat Rate mL/min > 60 mL/min (>60) Glucose Level 115 mg/dl (70-220) Calcium Level 9.7 mg/dl (8.4-10.2) Lipase 1385 U/L (23-300) FELICITY CALIX September 08, 2018 13:54
== END 2018-09-08 15:00 | disposition home or self-care (01) | DRG 439 ==
LOC: E/R 21:01 → PP2 09-04 01:52 → 6WM 09-04 02:34 → PP2 09-04 11:43 → ICU 09-04 14:14 → 6WM 09-04 20:20
PROVIDERS: ADMIT Family Medicine; ATTEND Hospitalist
DX: K85.20 Alcohol induced acute pancreatitis without necrosis or infection (principal); F10.239 Alcohol dependence with withdrawal, unspecified; I10 Essential (primary) hypertension; R56.9 Unspecified convulsions; Y90.6 Blood alcohol level of 120-199 mg/100 ml
CPT/HCPCS: 36415; 71045; 74177; 76705; 80048; 80053; 80061; 80307; 81001; 82306; 82962; 83036; 83690; 83735; 84146; 84443; 84484; 85025; 86704; 86706; 86708; 86709; 86803; 87340; 93005; 96374; 96375; 96376; 97161; J0360; J1170; J2060; J2270; J2405; J3411; J7030; J7040; Q9967